=== PATIENT | female | born 1965 | race Caucasian/White ===

== ENCOUNTER 2023-01-12 17:27 | Inpatient (IN) | payer BC ==
[~2023-01-12] VITALS: Ht 172.7 cm; Wt 122.5 kg
[2023-01-12 17:50] VITALS: BP_SYST 155
--- NOTE | 2023-01-12 18:10 | NUR ---
Placed in room 5 . Placed on rn cardiac, blood pressure machine and pulse oximeter. To gown for exam. Side rails up. Report given to Bradly HINDS.
--- NOTE | 2023-01-12 18:10 | NUR ---
FAY Amaral at bedside examining patient.
[2023-01-12] MEDS ORDERED: KETOROLAC TROMETHAMINE 60 MG/2 ML VIAL IM ONE (18:15)
[2023-01-12 18:19] LABS: BASOPHILS # (AUTO) 0.1 K/uL (0.0-0.2); BASOPHILS % (AUTO) 0.6 % (0.0-2.0); EOSINOPHILS # (AUTO) 0.1 K/uL (0.0-0.4); EOSINOPHILS % (AUTO) 0.7 % (0.0-4.0); HEMATOCRIT 36.2 % (36-48); HEMOGLOBIN 11.3 g/dL (12.0-16.0); LYMPHOCYTES # (AUTO) 1.6 K/uL (1.0-5.5); MEAN CORPUSCULAR HEMOGLOBIN 23 pg (27-31); MEAN CORPUSCULAR HGB CONC 31 % (32-36); MEAN CORPUSCULAR VOLUME 74 fL (79.0-98.0); MONOCYTES # (AUTO) 0.8 K/uL (0.0-1.0); MONOCYTES % (AUTO) 5.9 % (1.7-9.3); NEUTROPHILS # (AUTO) 11.6 K/uL (1.8-7.7); NEUTROPHILS % (AUTO) 81.8 % (40.0-70.0); PLATELET COUNT (AUTO) 293 K/uL (130-430); RED BLOOD CELL COUNT(AUTO) 4.88 MIL/uL (4.2-6.2); RED CELL DISTRIBUTION WIDTH 17.8 % (9.0-15.0); WHITE BLOOD COUNT (AUTO) 14.2 K/uL (4.8-10.8)
--- NOTE | 2023-01-12 18:30 | NUR ---
Patient brought in by sister from home. Chief Complaint: Abdominal Pain, Nausea and Vomiting. Patient rates pain at 4/10, but 9/10 if she needs to move in her abdomen. Patient is awake, alert, and oriented x3. Patient is stable. Patient provided home report of medications. MD made aware of Creon dosing of up to 6 capsules per day, 24,000u each capsule. Sister at bedside.
[2023-01-12 18:31] LABS: CALCIUM 8.7 mg/dL (8.4-11.0); CREATININE 0.83 mg/dL (0.55-1.30)
[2023-01-12 18:36] LABS: ALBUMIN 3.2 g/dL (3.4-4.8); TOTAL BILIRUBIN 0.8 mg/dL (0.0-1.0)
--- NOTE | 2023-01-12 19:06 | NUR ---
COVID SWAB COLLECTED AND SENT TO LAB.
--- NOTE | 2023-01-12 19:24 | NUR ---
duplicate note for Admit Request due to input error. Admit bed requested Patient will be admitted to care of . Admitted to Med Surg unit. Diagnosis Pancreatitis Inpatient (Yes or No) yes Observation (Yes or No) yes Orientation concerns or request close to nursing station (Yes or No) no Covid Status pending On vent or bipap no Isolation requirements no Needs a sitter no From Home (Yes or if No enter name of facility) home Requires Dialysis (Yes or No) no
--- NOTE | 2023-01-12 19:24 | NUR ---
Admit bed requested Patient will be admitted to care of []. Admitted to [] unit. Diagnosis [] Inpatient (Yes or No) [] Observation (Yes or No) [] Orientation concerns or request close to nursing station (Yes or No) [] Covid Status [] On vent or bipap [] Isolation requirements [] Needs a sitter [] From Home (Yes or if No enter name of facility) [] Requires Dialysis (Yes or No) [] Med Rec Completed (Yes of No) [] Addendum: 01/12/23 at 1925 by SDEDEB Admit bed requested Patient will be admitted to care of . Admitted to Med Surg unit. Diagnosis Pancreatitis Inpatient (Yes or No) yes Observation (Yes or No) yes Orientation concerns or request close to nursing station (Yes or No) no Covid Status pending On vent or bipap no Isolation requirements no Needs a sitter no From Home (Yes or if No enter name of facility) home Requires Dialysis (Yes or No) no
[2023-01-12] MEDS ORDERED: MORPHINE 2 MG/ML INJ. SYRINGE IVP PRN (19:30)
[2023-01-12] MEDS ORDERED: NACL 0.9% 1,000 ML IV ONE (19:30)
[2023-01-12 19:34] LABS: BILIRUBIN,URINE NEGATIVE (NEGATIVE); CLARITY/URINE CLEAR (CLEAR); COLOR,URINE YELLOW (YELLOW); GLUCOSE,URINE NEGATIVE (NEGATIVE); KETONES,URINE NEGATIVE (NEGATIVE); LEUKOCYTE ESTERASE ,URINE NEGATIVE (NEGATIVE); NITRITE, URINE NEGATIVE (NEGATIVE); PH,URINE 5.5 (5.0-8.0); PROTEIN URINE NEGATIVE (NEGATIVE); UROBILINOGEN,URINE 0.2 (0.2-1.0)
[2023-01-12 19:41] LABS: BLOOD, URINE TRACE (NEGATIVE)
[2023-01-12 19:42] LABS: BACTERIA,URINE None Seen /HPF (None Seen); RBC,URINE NONE SEEN /HPF (0-3); WBC,URINE NONE SEEN /HPF (0-3)
[2023-01-12 19:43] LABS: MUCUS,URINE None Seen /LPF (None Seen)
[2023-01-12] MEDS ORDERED: AMYL1CAP58 PO (20:10)
[2023-01-12] MEDS ORDERED: LISI10TA29 PO (20:10)
[2023-01-12] MEDS ORDERED: ATOR10TA68 PO (20:10)
[2023-01-12] MEDS ORDERED: METF-381 PO (20:10)
[2023-01-12] MEDS ORDERED: ONDA4TAB55 PO (20:10)
[2023-01-12] MEDS ORDERED: INSU300I3 SUBCUT (20:10)
[2023-01-12] MEDS ORDERED: PANT40TA45 PO (20:11)
--- NOTE | 2023-01-12 20:11 | NUR ---
Medication reconciliation completed with information provided by Patient by reading the pill bottles to nurse. Any prior medication reconciliation on file was reviewed and corrected. Patient also takes Humalog with every meal, reports taking 48u via quick pen with each meal.
[2023-01-12] MEDS ORDERED: fentaNYL CITRATE/PF 100 MCG/2 ML AMP IVP ONE (21:00)
--- NOTE | 2023-01-12 21:04 | NUR ---
PT STARTED FEELING DIZZY IN THE MIDDLE OF FENTNYAL ADMINISTRATION PT RECIEVED 50MCG INSTEAD OF THE 75MCG PERSCRIBED. PT CONNECTED TO VS MONITOR. PT EDUCATED ON NOT GETTING UP WITHOUT ASSISTANCE, NAD EVEN UNLABORED RESPIRATIONS. SAFETY RAILS UP. 25MCG WASTED WITH WITNESS.
[2023-01-12] MEDS ORDERED: HEPARIN 25,000 UNITS/D5W 250ML 250 ML IV ONE (21:51)
--- NOTE | 2023-01-12 22:54 | NUR ---
Accucheck: blood sugar 157 awake alert oriented
--- NOTE | 2023-01-12 23:12 | NUR ---
REPORT RECIEVED FROM LOIS LOPES
--- NOTE | 2023-01-13 00:19 | NUR ---
Patient will be admitted to care of DR BARDALES. Admitted to MEDSURG unit. Will go to room 117A. Belongings list completed. Complete and up to date summary report printed. SBAR report to be RADHA HINDS AND REJI HINDS given at bedside with opportunity for questions.
--- NOTE | 2023-01-13 00:21 | NUR ---
CONSULTATION CALLED FOR JULIO LIAO FOR CONSULT OF PANCREATITIS ORDER BY CATIA AVITIA SPOKE WITH CHRISTIANO
[2023-01-13 05:08] VITALS: BP_SYST 140
--- NOTE | 2023-01-13 05:21 | NUR ---
Patient 57 years old female was admitted form [facility] for abdominal pain for 3 days, has past medical history of pancreatitis. patient has past medical history of HTN , MD and hyperlipidemia. patient denies SOB OR CHEST PAIN . NO SIGNS OR SYMPTOMS OF DISTRESS. COMFORT MEASURES ARE PROVIDED. CALL LIGHT WITHIN REACH
--- NOTE | 2023-01-13 07:35 | NUR ---
OPENING Patient laying in bed, sleeping. A/O x 4, Telugu speaking. Patient Breathing even and unlabored on room air O2 96%. Pain level is 3, no distress, no SOB. No diet order, paged MD to get diet or med orders. Patient has IV to RFA 20g, SL. Patient ambulatory and is able to use the restroom on her own . Bed is locked in lowest position. Call light within reach, all needs met, will continue to monitor.
[2023-01-13 07:37] VITALS: BP_SYST 117
--- NOTE | 2023-01-13 08:40 | NUR ---
Notes spoke with Dr bush regrading orders for patient, let him know that patient needs med recon, he stated that he is on his way and he will take care of it. Also put patient on a clear liquid diet.
--- NOTE | 2023-01-13 10:10 | NUR ---
Note MD at bedside speaking with patient. She will continue the clear liquid diet for today. MD will be med recon
[2023-01-13] MEDS: LR 1,000 ML IV SCH ×4 (11:22→23:28)
[2023-01-13 11:36] LABS: CHOLESTEROL 98 mg/dL (<200); HDL CHOLESTEROL 46 mg/dL (>55); LIPASE 2525 U/L (73-393); TRIGLYCERIDES 94 mg/dL (30-150)
--- NOTE | 2023-01-13 12:00 | NUR ---
Notes Patient laying in bed, watching tv. Patient Breathing even and unlabored on room air. Pain level is 3, no distress, no SOB. Patient ambulatory and is able to use the restroom on her own . Bed is locked in lowest position. Call light within reach, all needs met, will continue to monitor
[2023-01-13 12:19] VITALS: BP_SYST 137
[2023-01-13] MEDS ORDERED: DEXTROSE 50% JECT 50 ML DISP.SYRIN IVP PRN (12:30)
[2023-01-13] MEDS ORDERED: D5W 1,000 ML IV PRN (12:30)
[2023-01-13] MEDS ORDERED: GLUCOSE (DEXTROSE) ORAL GEL -Adults PO PRN (12:30)
[2023-01-13 16:49] VITALS: BP_SYST 154
--- NOTE | 2023-01-13 19:23 | NUR ---
CLOSING NOTE Patient laying in bed resting. A/O x 4, Ghanaian speaking. Patient Breathing even and unlabored on room air. Pain level is 3, no distress, no SOB. Clear Liquid Diet. Patient has IV to RFA 20g, SL. Patient ambulatory and is able to use the restroom on her own . Bed is locked in lowest position. Call light within reach, all needs met, will continue to monitor. Addendum: 01/13/23 at 1924 by Amena Cervantes LVN Will endorse to night guard nurse.
[2023-01-13 19:55] VITALS: BP_SYST 143
[2023-01-13] MEDS: INSULIN LISPRO SLIDING SCALE 100 UNITS/ML, 3 ML VIAL (humaLOG) SUBCUT PRN (21:44)
[2023-01-14 00:44] VITALS: BP_SYST 136
[2023-01-14] MEDS: LR 1,000 ML IV SCH ×6 (05:18→23:33)
--- NOTE | 2023-01-14 05:20 | NUR ---
Closing notes Pt asleep, easily awakens no s/s distress noted. BS checked 118. No c/o pain. IVF R. FA 20G infusing at ordered rate LR at 250. Pt on clear liquid diet. Call light within reach. To endorse to AM nurse.
[2023-01-14 07:40] VITALS: BP_SYST 125
--- NOTE | 2023-01-14 07:40 | NUR ---
OPENING Patient laying in bed, sleeping. A/O x 4, Maori speaking. Patient Breathing even and unlabored on room air O2 95%. No pain, no distress, no SOB, patient stated she did have pain during the night. She's on a clear liquid diet. Patient has IV to RFA 20g, with a lactated ringer @ 250hr. Patient ambulatory and is able to use the restroom on her own . Bed is locked in lowest position. Call light within reach, all needs met, will continue to monitor.
[2023-01-14 08:00] LABS: BASOPHILS # (AUTO) 0.1 K/uL (0.0-0.2); BASOPHILS % (AUTO) 0.8 % (0.0-2.0); EOSINOPHILS # (AUTO) 0.3 K/uL (0.0-0.4); EOSINOPHILS % (AUTO) 2.6 % (0.0-4.0); HEMATOCRIT 31.7 % (36-48); HEMOGLOBIN 10.2 g/dL (12.0-16.0); LYMPHOCYTES # (AUTO) 2.2 K/uL (1.0-5.5); LYMPHOCYTES % (AUTO) 22.4 % (20.5-51.5); MEAN CORPUSCULAR HEMOGLOBIN 24 pg (27-31); MEAN CORPUSCULAR HGB CONC 32 % (32-36); MEAN CORPUSCULAR VOLUME 74 fL (79.0-98.0); MONOCYTES # (AUTO) 0.6 K/uL (0.0-1.0); MONOCYTES % (AUTO) 6.3 % (1.7-9.3); NEUTROPHILS # (AUTO) 6.7 K/uL (1.8-7.7); NEUTROPHILS % (AUTO) 67.9 % (40.0-70.0); PLATELET COUNT (AUTO) 267 K/uL (130-430); RED CELL DISTRIBUTION WIDTH 18.1 % (9.0-15.0); WHITE BLOOD COUNT (AUTO) 9.8 K/uL (4.8-10.8)
[2023-01-14 08:14] LABS: ALBUMIN 2.7 g/dL (3.4-4.8); CALCIUM 8.4 mg/dL (8.4-11.0); CREATININE 0.68 mg/dL (0.55-1.30); TOTAL BILIRUBIN 0.8 mg/dL (0.0-1.0)
--- NOTE | 2023-01-14 09:57 | NUR ---
Note MD at bedside speaking to patient regarding pain management. Patient wants to downgrade from morphine due to getting nausea. MD will put in new order for Tramadol IM
[2023-01-14 12:00] VITALS: BP_SYST 140
--- NOTE | 2023-01-14 12:00 | NUR ---
Notes Patient laying in bed, watching TV. Patient Breathing even and unlabored on room air O2. No pain, no distress, no SOB. Patient has IV to RFA 20g, with a lactated ringer @ 250hr. Patient ambulatory and is able to use the restroom on her own . Bed is locked in lowest position. Call light within reach, all needs met, will continue to monitor.
[2023-01-14] MEDS ORDERED: PANTOPRAZOLE SODIUM 40 MG/VIAL (PROTONIX) IVP ONE (12:30)
[2023-01-14] MEDS: INSULIN LISPRO SLIDING SCALE 100 UNITS/ML, 3 ML VIAL (humaLOG) SUBCUT PRN ×2 (12:43→16:15)
--- NOTE | 2023-01-14 15:35 | NUR ---
Dietitian Recommendations * [facility], Low-Fat diet * RD provided DM/Pancreatitis MNT LP, MS, RD Please refer to Nutrition Assessment for details. Addendum: 01/14/23 at [address] Amended: Links added.
[2023-01-14 16:00] VITALS: BP_SYST 132
--- NOTE | 2023-01-14 16:20 | NUR ---
Notes Spoke with Dr Contreras regarding getting patient a PRN for zofran. MD will be putting in a PRN for 8mg IV Q6
[2023-01-14] MEDS: ONDANSETRON HCL 4 MG/2 ML VIAL IVP PRN (16:48)
--- NOTE | 2023-01-14 18:54 | NUR ---
CLOSING NOTE Patient laying in bed resting while watching TV. A/O x 4, Botswanan speaking. Patient Breathing even and unlabored on room air. No pain, no distress, no SOB. Consistent Carbohydrate Diet. Patient has IV to RFA 20g, with LR @250 Q4. Patient ambulatory and is able to use the restroom on her own . Bed is locked in lowest position. Call light within reach, all needs met, will endorse to [employer] food shift supervisor nurse.
[2023-01-14 19:55] VITALS: BP_SYST 133
--- NOTE | 2023-01-14 19:55 | NUR ---
Opening notes Pt alert, awake, no s/s distress. IVF infusing at ordered rate R. FA 20 clear and patent. Call light within reach. To monitor.
[2023-01-14] MEDS: KETOROLAC TROMETHAMINE 15 MG VIAL IVP PRN (20:10)
[2023-01-15] MEDS: ONDANSETRON HCL 4 MG/2 ML VIAL IVP PRN ×3 (01:34→23:07)
--- NOTE | 2023-01-15 01:34 | NUR ---
Rounds/Zofran Pt awake, c/o some nausea. Medicated with Zofran 8mg IVP as needed. Pain med not due yet. Call light/items within reach. To monitor.
[2023-01-15] MEDS: KETOROLAC TROMETHAMINE 15 MG VIAL IVP PRN ×4 (02:27→23:08)
[2023-01-15] MEDS: LR 1,000 ML IV SCH ×5 (02:30→10:48)
[2023-01-15 03:55] VITALS: BP_SYST 138
[2023-01-15 05:06] LABS: ALBUMIN 2.6 g/dL (3.4-4.8); CALCIUM 8.5 mg/dL (8.4-11.0); CREATININE 0.73 mg/dL (0.55-1.30); TOTAL BILIRUBIN 0.7 mg/dL (0.0-1.0)
--- NOTE | 2023-01-15 05:38 | NUR ---
Closing notes Pt alert, awake, ambulates to bathroom. BS checked 129. Pt NPO for MRCP. IVF infusing at ordered rate R. FA clear and patent. Call light within reach. Bed low, locked, siderails up x2. To endorse to AM nurse.
[2023-01-15 06:08] LABS: BASOPHILS # (AUTO) 0.1 K/uL (0.0-0.2); BASOPHILS % (AUTO) 0.7 % (0.0-2.0); EOSINOPHILS # (AUTO) 0.3 K/uL (0.0-0.4); EOSINOPHILS % (AUTO) 3.3 % (0.0-4.0); HEMATOCRIT 29.9 % (36-48); HEMOGLOBIN 9.5 g/dL (12.0-16.0); LYMPHOCYTES # (AUTO) 2.3 K/uL (1.0-5.5); LYMPHOCYTES % (AUTO) 25.5 % (20.5-51.5); MEAN CORPUSCULAR HEMOGLOBIN 24 pg (27-31); MEAN CORPUSCULAR HGB CONC 32 % (32-36); MEAN CORPUSCULAR VOLUME 74 fL (79.0-98.0); MONOCYTES # (AUTO) 0.8 K/uL (0.0-1.0); MONOCYTES % (AUTO) 8.7 % (1.7-9.3); NEUTROPHILS # (AUTO) 5.6 K/uL (1.8-7.7); NEUTROPHILS % (AUTO) 61.8 % (40.0-70.0); PLATELET COUNT (AUTO) 251 K/uL (130-430); RED BLOOD CELL COUNT(AUTO) 4.03 MIL/uL (4.2-6.2); RED CELL DISTRIBUTION WIDTH 18.3 % (9.0-15.0); WHITE BLOOD COUNT (AUTO) 9.2 K/uL (4.8-10.8)
[2023-01-15] MEDS: PANTOPRAZOLE SODIUM 40 MG/VIAL (PROTONIX) IVP SCH (09:21)
[2023-01-15 11:54] VITALS: BP_SYST 145
[2023-01-15 17:06] VITALS: BP_SYST 149
--- NOTE | 2023-01-15 19:00 | NUR ---
End of Shift Summary: Patient has had a restful day with ambulating to bathroom throughout the day. Patient given Toradol x 2 today. Patient refused morphine when offered. Patient was unable to go to have MRCP as she needs an open MRI machine; she will not fit in ours here. Patient requested diet be resumed until MRCP issue is resolved. Patient ate evening meal without issue. No sign or symptoms of acute distress at this time.
[2023-01-15 20:00] VITALS: BP_SYST 143
--- NOTE | 2023-01-15 20:14 | NUR ---
PT IS ALERT AND ORIENTED X4,SHE IS ABLE TO ANSWERS QUESTIONS. ROOM AIR. SHE IS CURRENTLY RESTING
[2023-01-15] MEDS: INSULIN LISPRO SLIDING SCALE 100 UNITS/ML, 3 ML VIAL (humaLOG) SUBCUT PRN (20:44)
--- NOTE | 2023-01-15 23:03 | NUR ---
pt is experiencing is nausea and pain. Nurse is getting the medication for it.
[2023-01-16 00:17] VITALS: BP_SYST 152
[2023-01-16] MEDS: INSULIN LISPRO SLIDING SCALE 100 UNITS/ML, 3 ML VIAL (humaLOG) SUBCUT PRN ×2 (01:36→10:41)
[2023-01-16] MEDS: LR 1,000 ML IV SCH ×7 (01:47→22:31)
--- NOTE | 2023-01-16 02:00 | NUR ---
she went to restroom and ambulatory.
--- NOTE | 2023-01-16 05:00 | NUR ---
pt is resting.
[2023-01-16 08:31] VITALS: BP_SYST 141
[2023-01-16] MEDS: KETOROLAC TROMETHAMINE 15 MG VIAL IVP PRN ×3 (08:58→18:15)
[2023-01-16] MEDS: PANTOPRAZOLE SODIUM 40 MG/VIAL (PROTONIX) IVP SCH (08:58)
[2023-01-16 09:00] LABS: BASOPHILS # (AUTO) 0.1 K/uL (0.0-0.2); BASOPHILS % (AUTO) 0.9 % (0.0-2.0); EOSINOPHILS # (AUTO) 0.2 K/uL (0.0-0.4); EOSINOPHILS % (AUTO) 3.1 % (0.0-4.0); HEMATOCRIT 29.7 % (36-48); HEMOGLOBIN 9.5 g/dL (12.0-16.0); LYMPHOCYTES # (AUTO) 2.1 K/uL (1.0-5.5); LYMPHOCYTES % (AUTO) 26.2 % (20.5-51.5); MEAN CORPUSCULAR HEMOGLOBIN 24 pg (27-31); MEAN CORPUSCULAR HGB CONC 32 % (32-36); MEAN CORPUSCULAR VOLUME 74 fL (79.0-98.0); MONOCYTES # (AUTO) 0.7 K/uL (0.0-1.0); MONOCYTES % (AUTO) 8.1 % (1.7-9.3); NEUTROPHILS % (AUTO) 61.7 % (40.0-70.0); PLATELET COUNT (AUTO) 254 K/uL (130-430); WHITE BLOOD COUNT (AUTO) 8.1 K/uL (4.8-10.8)
[2023-01-16] MEDS: ONDANSETRON HCL 4 MG/2 ML VIAL IVP PRN ×2 (09:06→18:17)
[2023-01-16 09:13] LABS: ALBUMIN 2.7 g/dL (3.4-4.8); CALCIUM 8.2 mg/dL (8.4-11.0); CREATININE 0.92 mg/dL (0.55-1.30); TOTAL BILIRUBIN 0.8 mg/dL (0.0-1.0)
[2023-01-16 11:03] VITALS: BP_SYST 160
--- NOTE | 2023-01-16 15:47 | NUR ---
ROUNDS LATE ENTRY DUE TO PATIENT CARE 0800- ASSUMED PT CARE. IN BED AAOX4. C/O 5/10 ABDOMINAL PAIN AT THIS TIME. PLAN OF CARE DISCUSSED WITH PATIENT. PT VERBALIZED UNDERSTANDING 1000- AMBULATED TO THE RESTROOM INDEPENDENTLY. REPORTED HAD 1 BM 1200- DENIES PAIN AT THIS TIME
[2023-01-16 16:43] VITALS: BP_SYST 150
--- NOTE | 2023-01-16 20:00 | NUR ---
OPENING Patient resting in chair, unlabored breathing on room air. IV fluids infusing. BP 173/78. Patient states she normally takes 10mg lisinopril at home. Also reports she has been having pain and nausea. Safety precautions in place.
--- NOTE | 2023-01-16 20:02 | NUR ---
END OF SHIFT ALL NEEDS ATTENDED. REPORT GIVEN TO NIGHT NURSE
[2023-01-16 20:10] VITALS: BP_SYST 175
[2023-01-16] MEDS ORDERED: PANTOPRAZOLE SODIUM 40 MG TAB PO SCH (20:15)
[2023-01-16] MEDS ORDERED: LIPASE/PROTEASE/AMYLASE 1 CAP PO ONE (20:15)
[2023-01-16] MEDS ORDERED: LISINOPRIL 10 MG TABLET (PRINIVIL) PO ONE (20:15)
--- NOTE | 2023-01-16 20:20 | NUR ---
DR. BARDALES Informed Dr. Bardales of patient's elevated BP. He stated he will reconcile her home meds.
[2023-01-16] MEDS: hydrALAZINE HCL 20 MG/ML VIAL IVP PRN (22:20)
--- NOTE | 2023-01-16 22:20 | NUR ---
HYDRALAZINE Hydralazine PRN given for BP 173/78.
--- NOTE | 2023-01-16 22:57 | NUR ---
DR. BARDALES 2155 - Patient stated she has not been eating much. She said she had a small piece of pasta and chicken earlier and nausea worsened. Currently on full liquid diet. Patient stated she doesn't want to take her usual metformin because she is worried it will drop her blood sugar too much while she is not eating much. Informed Dr. Bardales. Received order to DC metformin. 2256 - Patient reporting nausea worsened from previously. Patient has not vomited, dry heaving only. +1 pitting edema noted to bilateral ankles. Patient stated she has "retained water" and had swollen ankles before but that they weren't swollen yesterday. Informed Dr. Bardales. Received order for Reglan PRN, and to decrease rate of LR to 150mL/hr. Dr. Bardales also aware that patient's HR has been in the 50s and has trended downward.
[2023-01-17 00:10] VITALS: BP_SYST 162
[2023-01-17] MEDS: KETOROLAC TROMETHAMINE 15 MG VIAL IVP PRN ×2 (00:30→06:36)
--- NOTE | 2023-01-17 00:30 | NUR ---
Toradol and Reglan PRN given. Patient reporting nausea and abdominal pain. IV fluids infusing. Patient ambulated to bathroom with steady gait.
[2023-01-17] MEDS: METOCLOPRAMIDE HCL 10 MG/2 ML VIAL IVP PRN ×2 (00:31→06:37)
--- NOTE | 2023-01-17 05:17 | NUR ---
ROUNDS Patient resting in bed, no distress noted. Patient states the pain and nausea are "okay" currently and that the medications helped.
[2023-01-17] MEDS: LR 1,000 ML IV SCH ×3 (05:40→18:01)
[2023-01-17 07:08] LABS: BASOPHILS # (AUTO) 0.1 K/uL (0.0-0.2); BASOPHILS % (AUTO) 0.9 % (0.0-2.0); EOSINOPHILS # (AUTO) 0.2 K/uL (0.0-0.4); EOSINOPHILS % (AUTO) 2.2 % (0.0-4.0); HEMATOCRIT 29.5 % (36-48); HEMOGLOBIN 9.5 g/dL (12.0-16.0); LYMPHOCYTES # (AUTO) 2.5 K/uL (1.0-5.5); LYMPHOCYTES % (AUTO) 27.4 % (20.5-51.5); MEAN CORPUSCULAR HEMOGLOBIN 24 pg (27-31); MEAN CORPUSCULAR HGB CONC 32 % (32-36); MEAN CORPUSCULAR VOLUME 74 fL (79.0-98.0); MONOCYTES # (AUTO) 0.7 K/uL (0.0-1.0); MONOCYTES % (AUTO) 7.8 % (1.7-9.3); NEUTROPHILS # (AUTO) 5.7 K/uL (1.8-7.7); NEUTROPHILS % (AUTO) 61.7 % (40.0-70.0); PLATELET COUNT (AUTO) 276 K/uL (130-430); RED BLOOD CELL COUNT(AUTO) 3.99 MIL/uL (4.2-6.2); RED CELL DISTRIBUTION WIDTH 17.8 % (9.0-15.0); WHITE BLOOD COUNT (AUTO) 9.2 K/uL (4.8-10.8)
--- NOTE | 2023-01-17 07:44 | NUR ---
CLOSING Patient stable through night. Given Toradol and Reglan PRN with relief. PO intake decreased due to nausea. AM blood sugar 150. BP 135/68 this morning. Ambulated with steady gait. IV fluids infusing. Safety precautions in place. Endorsed to oncoming nurse.
[2023-01-17 08:01] LABS: ALBUMIN 2.7 g/dL (3.4-4.8); CALCIUM 8.2 mg/dL (8.4-11.0); CREATININE 0.81 mg/dL (0.55-1.30); TOTAL BILIRUBIN 0.9 mg/dL (0.0-1.0)
[2023-01-17 08:07] VITALS: BP_SYST 152
[2023-01-17] MEDS ORDERED: metFORMIN HCL 500 MG TABLET PO SCH (09:00)
[2023-01-17] MEDS: LIPASE/PROTEASE/AMYLASE 1 CAP PO SCH ×3 (09:01→18:01)
[2023-01-17] MEDS: LISINOPRIL 10 MG TABLET (PRINIVIL) PO SCH (09:01)
[2023-01-17] MEDS: PANTOPRAZOLE SODIUM 40 MG/VIAL (PROTONIX) IVP SCH (09:01)
[2023-01-17 12:41] VITALS: BP_SYST 131
[2023-01-17 15:12] VITALS: BP_SYST 161
[2023-01-17] MEDS: hydrALAZINE HCL 20 MG/ML VIAL IVP PRN (15:26)
[2023-01-17 20:00] VITALS: BP_SYST 146
[2023-01-18] MEDS: INSULIN LISPRO SLIDING SCALE 100 UNITS/ML, 3 ML VIAL (humaLOG) SUBCUT PRN ×3 (06:27→17:16)
[2023-01-18] MEDS: LR 1,000 ML IV SCH ×2 (06:29→08:20)
[2023-01-18 07:51] VITALS: BP_SYST 159
[2023-01-18] MEDS: LIPASE/PROTEASE/AMYLASE 1 CAP PO SCH ×3 (08:09→17:35)
[2023-01-18] MEDS: PANTOPRAZOLE SODIUM 40 MG/VIAL (PROTONIX) IVP SCH (08:09)
[2023-01-18] MEDS: LISINOPRIL 10 MG TABLET (PRINIVIL) PO SCH (08:09)
--- NOTE | 2023-01-18 08:13 | NUR ---
PT REFUSED TO EAT HER FULL LIQUID BREAKFAST , NO ORDER TO ADVANCE DIET. WAITING FOR GI MD TO SEE PT. SPOKE WITH DR PORFIRIO MD ADVANCE DIET TO SOFT LOWFAT. WILL CONT TO MONITOR PT.
[2023-01-18 11:16] VITALS: BP_SYST 140
[2023-01-18 13:43] VITALS: BP_SYST 153
[2023-01-18 14:25] VITALS: BP_SYST 153
[2023-01-18 15:11] VITALS: BP_SYST 151
--- NOTE | 2023-01-18 17:00 | NUR ---
PT HAS BEEN STABLE THE WHOLE SHIFT, NO C/O PAIN, TOLERATEING SOFT DIET. WAITING FOR HER RIDE TO GO HOME.
== END 2023-01-18 20:09 | disposition home or self-care (01) | DRG 439 ==
LOC: SED 17:27 → SMU 21:41
PROVIDERS: ADMIT Internal Medicine; ATTEND Internal Medicine
DX: K85.90 Acute pancreatitis without necrosis or infection, unspecified (principal); R65.10 Systemic inflammatory response syndrome (SIRS) of non-infectious origin without acute organ dysfunction; Z68.41 Body mass index [BMI] 40.0-44.9, adult; R74.01 Elevation of levels of liver transaminase levels; E11.9 Type 2 diabetes mellitus without complications; E66.01 Morbid (severe) obesity due to excess calories; Z20.822 Contact with and (suspected) exposure to COVID-19; E78.1 Pure hyperglyceridemia; Z90.49 Acquired absence of other specified parts of digestive tract; Z79.899 Other long term (current) drug therapy; Z79.4 Long term (current) use of insulin
CPT/HCPCS: 36415; 76376; 80053; 80061; 81000; 82787; 82962; 83037; 83690; 85025; 86301; 96361; 96372; 96374; 99285; C9113; J0360; J1644; J1885; J2270; J2405; J2765; J3010